=== PATIENT | female | born 1965 | race Caucasian/White ===

== ENCOUNTER → 2020-08-02 | Outpatient (CLI) | payer BC ==
--- NOTE | 2020-08-02 11:24 | US ---
EXAMINATION TYPE: US abdomen complete DATE OF EXAM: 08/02/2020 COMPARISON: NONE CLINICAL HISTORY: Nausea R11.0. Intermittent nausea x 1 mth EXAM MEASUREMENTS: Liver Length: 17.9 cm Gallbladder Wall: 0.3 cm CBD: 0.3 cm Spleen: 12.2 cm Right Kidney: 10.3 x 4.2 x 5.9 cm Left Kidney: 10.7 x 4.9 cm Pancreas: Tail obscured by overlying bowel gas Liver: wnl Gallbladder: Multiple, echogenic, shadowing stones Evidence for sonographic Friedman's sign: No CBD: wnl Spleen: wnl Right Kidney: No hydronephrosis or masses seen Left Kidney: No hydronephrosis or masses seen Upper IVC: wnl Abd Aorta: Proximal portion obscured. Mid and distal WNL The liver is homogenous. The intrahepatic portion of the IVC and proximal abdominal aorta are within normal limits. Common bile duct is unremarkable. The visualized portions of the pancreas are homog enous. The spleen is unremarkable. Kidneys are symmetric and free of hydronephrosis. No renal lesi ons are seen. IMPRESSION: Uncomplicated cholelithiasis.
== END | disposition home or self-care (01) ==
LOC: RADUSWWP 10:04
PROVIDERS: ATTEND Internal Medicine Cardiovascular Disease
DX: K80.20 Calculus of gallbladder without cholecystitis without obstruction (principal)
CPT/HCPCS: 76700

== ENCOUNTER 2024-10-30 11:23 | Emergency (ER) | payer BC ==
[2024-10-30 11:43] VITALS: TEMP 98.2
--- NOTE | 2024-10-30 11:54 | ED ---
General Adult HPI - General Chief complaint: Extremity Injury, Upper Stated complaint: Fall/L Wrist Time Seen by Provider: 10/30/24 11:45 Source: patient Mode of arrival: ambulatory Limitations: no limitations, physical limitation - History of Present Illness Initial comments: Dictation was produced using [employer] dictation software. please excuse any gramma tical, word or spelling errors. Chief Complaint: 59-year-old female with left wrist injury History of Present Illness: Patient 59-year-old female presents with left wrist injury. Patient states that she slipped on a outstretched hand after slipping on some ice while holding her dog. Patient noticed deformity to her left wrist. Denies any history of previous wrist injury. Patient takes no anticoagulation medications. Patient has no other complaints. The ROS documented in this emergency department record has been reviewed and confirmed by me. Those systems with pertinent positive or negative responses have been documented in the HPI. All other systems are other negative and/or noncontributory. - Related Data Previous Rx's Medication Instructions Recorded HYDROcodone/APAP 5-325MG [Witter 1 tab PO Q6HR PRN 3 Days #12 tab 10/30/24 5-325] Allergies Allergy/AdvReac Type Severity Reaction Status Date / Time No Known Allergies Allergy Verified 10/30/24 11:37 Review of Systems ROS Statement: Those systems with pertinent positive or pertinent negative responses have been documented in the HPI. ROS Other: All systems not noted in ROS Statement are negative. Past Medical History Past Medical History: Hyperlipidemia, Hypertension, Osteoarthritis (OA) Additional Past Medical History / Comment(s): Aortic aneurysm Past Surgical History: Hysterectomy, Orthopedic Surgery, Tubal Ligation Additional Past Surgical History / Comment(s): carpal tunnel bilateral hands Smoking Status: Never smoker Past Alcohol Use History: None Reported Past Drug Use History: None Reported General Exam - General Exam Comments Initial Comments: General: Well-appearing, nontoxic, no acute distress. Head: Normocephalic, atraumatic Eyes: PERRLA, EOMI ENT: Airway patent Chest: Nonlabored breathing Skin: No visual rash, normal skin tone Neuro: Alert and oriented 3 Musculoskeletal: No gross abnormalities Left wrist: Abrasion to the left anterior ulna area, gross dinner fork deformity Limitations: no limitations, physical limitation Course Vital Signs 10/30/24 10/30/24 10/30/24 11:37 12:20 12:25 Temperature 98.2 F Pulse Rate 98 53 L 55 L Respiratory 18 18 18 Rate Blood Pressure 109/73 95/61 92/62 O2 Sat by Pulse 95 98 99 Oximetry 10/30/24 10/30/24 10/30/24 12:32 12:36 12:46 Temperature Pulse Rate 49 L 49 L 53 L Respiratory 18 18 18 Rate Blood Pressure 100/78 117/82 124/90 O2 Sat by Pulse 99 99 99 Oximetry 10/30/24 12:47 Temperature Pulse Rate 56 L Respiratory Rate Blood Pressure 124/90 O2 Sat by Pulse 99 Oximetry Procedures - Orthopedic Fracture Reduction Fracture #1 Consent Obtained: verbal consent, written consent Side: left Fracture Reduction Location: radius Analgesia: procedural sedation Technique: direct manipulation Post Reduction X-rays Demonstrate: acceptable reduction Post-Reduction Neuro Exam: intact Post-Reduction Vascular Exam: intact Splint Applied: Yes Patient Tolerated Procedure: well - Procedural Sedation *Procedural Sedation Start Time: 12:20 *Procedural Sedation Stop Time: 12:30 *Risks,benefits, and alternative therapies discussed?: Yes *Patient indicates understanding of risk/benefit discussion?: Yes *Indications: fracture/dislocation reduction *Previous Adverse Reaction to Anesthesia/Sedation?: No * Testing Complete?: No Reason Test Not Complete:: Emergent Situation *Mallampati Airway Score: 1 Preparation: site monitor applied, pulse oximeter, capnometry used, supplemental O2 applied IV Propofol Dose (mgs): 100 Complications: none Medical Decision Making - Medical Decision Making Was pt. sent in by a medical professional or institution (, PA, BUSINESS DEVELOPMENT PROFESSIONAL, urgent care, hospital, or jail...) When possible be specific @ -No Did you speak to anyone other than the patient for history (EMS, parent, family, police, friend...)? What history was obtained from this source @ -No Did you review nursing and triage notes (agree or disagree)? Why? @ -I reviewed and agree with nursing and triage notes Were old charts reviewed (outside hosp., previous admission, EMS record, old EKG, old radiological studies, urgent care reports/EKG's, jail records)? Report findings @ -No old charts were reviewed Differential Diagnosis (chest pain, altered mental status, abdominal pain women, abdominal pain men, vaginal bleeding, musculoskeletal, weakness, fever, dyspnea, syncope, headache, dizziness, GI bleed, back pain, seizure, CVA, palpatations, mental health)? @ -Wrist fracture, wrist sprain, wrist dislocation EKG interpreted by me (3pts min.). @ -None done X-rays interpreted by me (1pt min.). @ -X-ray showed distal radius fracture with posterior displacement of the hand. Repeat x-ray shows reduction successfully CT interpreted by me (1pt min.). @ -None done U/S interpreted by me (1pt. min.). @ -None done What testing was considered but not performed or refused? (CT, X-rays, U/S, labs)? Why? @ -None What meds were considered but not given or refused? Why? @ -None Was smoking cessation discussed for >3mins.? @ -No Were there social determinants of health that impacted care today? How? (Homelessness, low income, unemployed, alcoholism, drug addiction, transportation, low edu. Level, literacy, decrease access to med. care, detention, rehab)? @ -No Was there de-escalation of care discussed even if they declined (Discuss DNR or withdrawal of care, Hospice)? DNR status @ -No What co-morbidities impacted this encounter? (DM, HTN, Smoking, COPD, CAD, Cancer, CVA, ARF, Chemo, Hep., AIDS, mental health diagnosis, sleep apnea, morbid obesity)? @ -None Was patient admitted / discharged? Hospital course, mention meds given and route, prescriptions, significant lab abnormalities, going to OR and other pertinent info. @ -59-year-old female presents to the emergency department for wrist fracture after fall on outstretched hand. Vital signs stable. X-ray showed distal radius fracture with posterior dislocation of the hand. Reduction x-ray shows acceptable alignment. Patient states that the splint did feel little tight. Splint was loosened slightly. Patient given analgesics. Will be discharged with referral to hand specialist. Did you discuss the management of the patient with other professionals (professionals i.e. , PA, BUSINESS DEVELOPMENT PROFESSIONAL, lab, RT, psych nurse, geriatric social work professor, inspector rubber stamp die, teacher, ambulance officer, director of casework department)? Give summary @ -No Was critical care preformed (if so, how long)? @ -No Undiagnosed new problem with uncertain prognosis? @ -No Drug Therapy requiring intensive monitoring for toxicity (Heparin, Nitro, Insulin, Cardizem)? @ -No Were any procedures done? @ -No Diagnosis/symptom? Acute, or Chronic, or Acute on Chronic? Uncomplicated (without systemic symptoms) or Complicated (systemic symptoms)? @ -Distal radius fracture Side effects of treatment? @ -No Exacerbation, Progression, or Severe Exacerbation? @ -No Poses a threat to life or bodily function? How? (Chest pain, [place], [place], pneumonia, PE, COPD, DKA, ARF, appy, cholecystitis, CVA, Diverticulitis, Homicidal, Suicidal, threat to staff... and all critical care pts) @ -yes Disposition Clinical Impression: Radius fracture Disposition: HOME SELF-CARE Condition: Fair Instructions (If sedation given, give patient instructions): Wrist Fracture in Adults (ED) Prescriptions: HYDROcodone/APAP 5-325MG [Witter 5-325] 1 tab PO Q6HR PRN 3 Days #12 tab PRN Reason: Severe Pain Is patient prescribed a controlled substance at d/c from ED?: Yes If prescribed controlled substance>3 days was MAPS reviewed?: Prescribed <3 Days Referrals: Yohana Giles DO [Doctor of Osteopathic Medicine] - 1-2 days Time of Disposition: 13:00
[2024-10-30] MEDS: MORPHINE SULFATE 4 MG/ML SYRINGE IV STA (11:59)
[2024-10-30] MEDS: PROPOFOL 10 MG/ML 20 ML VIAL IV ONE (12:31)
--- NOTE | 2024-10-30 12:41 | XR ---
EXAMINATION TYPE: XR wrist complete LT DATE OF EXAM: 10/30/2024 12:14 PM COMPARISON: None CLINICAL INDICATION: Female, 59 years old with history of deformity, foosh, pain TECHNIQUE: XR wrist complete LT; examined in the Frontal, navicular, lateral, and oblique. FINDINGS/IMPRESSION: Acute comminuted intra-articular fracture of the distal radius with posterior displacement of the taylor dNick [facility] [place], , 10/30/2024 12:39 PM
--- NOTE | 2024-10-30 13:09 | XR ---
EXAMINATION TYPE: XR wrist limited LT DATE OF EXAM: 10/30/2024 1:00 PM COMPARISON: None CLINICAL INDICATION: Female, 59 years old with history of post reduction; PHH, pain TECHNIQUE: XR wrist limited LT; examined in the Frontal, and lateral. FINDINGS/IMPRESSION: Improved anatomic alignment of the hand with respect to the wrist. There remains comminuted intra-art icular fracture with shortening. [facility], , 10/30/2024 1:06 PM
[2024-10-30 13:42] VITALS: BP 126/88; PULSE 58; RESP 17
== END 2024-10-30 13:53 | disposition home or self-care (01) ==
LOC: EC 11:23
DX: S52.572A Other intraarticular fracture of lower end of left radius, initial encounter for closed fracture (principal); W00.0XXA Fall on same level due to ice and snow, initial encounter
CPT/HCPCS: 73100; 73110; 25605; 99152; 99283; 96374; J2270; J2704